=== PATIENT | male | born 1995 | race Caucasian/White ===

== ENCOUNTER 2018-05-07 17:24 | Emergency (ER) | payer OTHER ==
[2018-05-07 17:58] LABS: BEDSIDE GLUCOSE 118 MG/DL (70-105)
[2018-05-07] MEDS: IBUPROFEN 600 MG TAB PO (18:39)
[2018-05-07] MEDS: ACETAMINOPHEN 325 MG TAB PO (18:40)
== END 2018-05-07 19:53 | disposition home or self-care (01) ==
LOC: M ED 17:24
DX: G43.109 Migraine with aura, not intractable, without status migrainosus (principal); Z72.820 Sleep deprivation; F90.9 Attention-deficit hyperactivity disorder, unspecified type; Z79.899 Other long term (current) drug therapy; F17.210 Nicotine dependence, cigarettes, uncomplicated
CPT/HCPCS: 93005